=== PATIENT | male | born 1985 | race Caucasian/White ===

== ENCOUNTER 2023-11-02 11:28 | Emergency (ER) | payer SELFPAY ==
[~2023-11-02] VITALS: Ht 185.4 cm; Wt 68.0 kg
[2023-11-02] MEDS ORDERED: PHENY50CH PO (12:16)
[2023-11-02] MEDS ORDERED: Dilantin 100 m100 MG PO (12:19)
== END 2023-11-02 12:49 | disposition home or self-care (01) ==
LOC: ER 11:28
DX: Z76.0 Encounter for issue of repeat prescription (principal); Z86.69 Personal history of other diseases of the nervous system and sense organs; Z79.899 Other long term (current) drug therapy
CPT/HCPCS: 99281; A9270